=== PATIENT | female | born 1970 | race Caucasian/White ===

== ENCOUNTER → 2018-11-13 07:56 | Outpatient (CLI) | payer OTHER | END | disposition home or self-care (01) | LOC: D.MRI 07:56 | PROVIDERS: ATTEND Family Medicine | DX: S86.019A Strain of unspecified Achilles tendon, initial encounter (principal); X58.XXXD Exposure to other specified factors, subsequent encounter ==

== ENCOUNTER → 2019-04-15 08:00 | Outpatient (CLI) | payer OTHER | END | disposition home or self-care (01) | LOC: D.MRI 08:00 | PROVIDERS: ATTEND Family Medicine | DX: M23.51 Chronic instability of knee, right knee (principal) ==